=== PATIENT | female | born 1985 | race Hispanic/Latino ===

== ENCOUNTER 2020-12-19 06:49 | Outpatient (CLI) | payer BC | END 2020-12-19 06:50 | disposition home or self-care (01) | LOC: BICULT 06:49 | PROVIDERS: ATTEND Physician Assistant Medical | DX: R11.0 Nausea (principal); R10.13 Epigastric pain; K21.9 Gastro-esophageal reflux disease without esophagitis; K80.20 Calculus of gallbladder without cholecystitis without obstruction | CPT/HCPCS: 76705 ==

== ENCOUNTER 2023-09-07 10:41 | Outpatient (CLI) | payer BC | END 2023-09-07 10:42 | disposition home or self-care (01) | LOC: BICRAD 10:41 | PROVIDERS: ATTEND Internal Medicine Rheumatology | DX: M47.812 Spondylosis without myelopathy or radiculopathy, cervical region (principal); M50.322 Other cervical disc degeneration at C5-C6 level | CPT/HCPCS: 72052 ==

== ENCOUNTER 2024-08-16 10:14 | Outpatient (CLI) | payer BC | END 2024-08-16 10:15 | disposition home or self-care (01) | LOC: MRI 10:14 | PROVIDERS: ATTEND Specialist | DX: M50.122 Cervical disc disorder at C5-C6 level with radiculopathy (principal) | CPT/HCPCS: 72141 ==

== ENCOUNTER 2025-05-26 23:12 | Observation (INO) | payer BC ==
[~2025-05-26 23:12] MED LIST: Iopamidol-370 76% 500 ML MDV (1 ML CHARGE) ONE
[2025-05-26 23:44] LABS: #Basophils 0.07 10x3/uL (0.0-0.2); #Eosinophils 0.18 10x3/uL (0.0-0.7); #Monocytes 0.87 10x3/uL (0.11-0.59); #Neutrophils 5.83 10x3/uL (1.40-6.50); %Basophils 0.7 % (0.0-1.0); %Eosinophils 1.7 % (0.0-10.0); %Lymphocytes 33.1 % (21.0-51.0); %Monocytes 8.3 % (0.0-10.0); %Neutrophils 56.0 % (42.0-75.0); Hematocrit 38.3 % (36.0-47.0); Hemoglobin 12.5 g/dL (12.0-16.0); Mean Corpuscular Hemoglobin 28.9 pg (27.0-31.0); Mean Corpuscular Volume 88.7 fL (78.0-98.0); Platelet Count 325 10x3/uL (130-400); Red Blood Cell (RBC) Count 4.32 mill/uL (4.20-5.40); White Blood Cell (WBC) Count 10.42 10x3/uL (4.8-10.8)
[2025-05-26 23:58] LABS: ALT (SGPT) 19 U/L (Less than 34); AST (SGOT) 20 U/L (11-34); Albumin 4.1 g/dL (3.1-4.5); Alkaline Phosphatase 85 U/L (40-110); Anion Gap 12 mmol/L (10-20); BUN (Urea Nitrogen) 14 mg/dL (7.0-18.7); Bilirubin, Total 0.2 mg/dL (0.3-1.2); Calc. Creatinine Clearance 0 mL/min (70-130); Calcium 9.1 mg/dL (7.8-10.44); Carbon Dioxide 24 mmol/L (22-29); Chloride 104 mmol/L (98-107); Globulin 3.0 g/dL (2.4-3.5); Glucose 97 mg/dL (70-105); Potassium 3.7 mmol/L (3.5-5.1); Sodium 136 mmol/L (136-145)
[2025-05-27 00:04] LABS: INR-International Normal Ratio 0.9; PTT 31.8 sec (22.9-36.1); Prothrombin Time 12.5 sec (12.0-14.7)
[2025-05-27] MEDS ORDERED: Ondansetron PF 4 MG/2 ML Vial IVP PRN (02:44)
[2025-05-27 04:52] LABS: #Basophils 0.05 10x3/uL (0.0-0.2); #Eosinophils 0.17 10x3/uL (0.0-0.7); #Monocytes 0.59 10x3/uL (0.11-0.59); #Neutrophils 4.11 10x3/uL (1.40-6.50); %Basophils 0.7 % (0.0-1.0); %Eosinophils 2.3 % (0.0-10.0); %Lymphocytes 31.9 % (21.0-51.0); %Monocytes 8.1 % (0.0-10.0); %Neutrophils 56.7 % (42.0-75.0); Hematocrit 40.4 % (36.0-47.0); Hemoglobin 13.0 g/dL (12.0-16.0); Mean Corpuscular Hemoglobin 28.7 pg (27.0-31.0); Mean Corpuscular Volume 89.2 fL (78.0-98.0); Platelet Count 266 10x3/uL (130-400); Red Blood Cell (RBC) Count 4.53 mill/uL (4.20-5.40); White Blood Cell (WBC) Count 7.25 10x3/uL (4.8-10.8)
[2025-05-27 05:17] LABS: Anion Gap 10 mmol/L (10-20); BUN (Urea Nitrogen) 11 mg/dL (7.0-18.7); Calc. Creatinine Clearance 145 mL/min (70-130); Calcium 8.7 mg/dL (7.8-10.44); Carbon Dioxide 24 mmol/L (22-29); Cardiac Risk 3.7 (Less than 4.5); Chloride 105 mmol/L (98-107); Cholesterol 162 mg/dl (< 200 Desired); Glucose 89 mg/dL (70-105); HDL Cholesterol 44 mg/dL (>60 Neg Risk); LDL Cholesterol, Calculated 101 mg/dL; Potassium 3.5 mmol/L (3.5-5.1); Sodium 135 mmol/L (136-145); Triglycerides 85 mg/dL (Less than 150)
[2025-05-27] MEDS ORDERED: LORazepam 2 MG/ML SYR.(CARPUJECT) ONE (08:54)
[2025-05-27 13:43] VITALS: BP 126/67
[2025-05-27 14:51] VITALS: TEMP 97.8
== END 2025-05-27 14:40 | disposition home or self-care (01) ==
LOC: ERS 23:12 → ERHOLD 05-27 01:50
PROVIDERS: ADMIT Internal Medicine; ATTEND Internal Medicine
DX: R20.0 Anesthesia of skin (principal); R53.1 Weakness; R51.9 Headache, unspecified; Z88.5 Allergy status to narcotic agent
CPT/HCPCS: 0042T; 36415; 36416; 70450; 70496; 70498; 70553; 76376; 80048; 80053; 80061; 83036; 84443; 84484; 85025; 85610; 85730; 93005; 94760; 96374; G0378; J2060; Q9967